=== PATIENT | male | born 1985 | race Caucasian/White ===

== ENCOUNTER 2019-04-30 19:11 | Emergency (ER) | payer BC, OTHER ==
[2019-04-30] MEDS ORDERED: Amoxicillin/Clavulanate K 875-125 MG Tab ONE (19:15)
--- NOTE | 2019-05-01 14:07 | EDM.PDOC ---
ED HPI GENERAL MEDICAL PROBLEM - General Chief Complaint: ENT Problem Stated Complaint: SORE THROAT Time Seen by Provider: 04/30/19 19:35 Source of Information: Reports: Patient History Limitations: Reports: No Limitations - History of Present Illness INITIAL COMMENTS - FREE TEXT/NARRATIVE: This is a 33yo M here for sore throat and malaise. He has been feeling worse the past week with no improvement of his sore throat. 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: Other Medication(s) - Related Data Allergies Allergy/AdvReac Type Severity Reaction Status Date / Time No Known Allergies Allergy Verified 04/30/19 19:19 Past Medical History Psychiatric History: Reports: Anxiety, PTSD Other Psychiatric History: mild PTSD - Infectious Disease History Infectious Disease History: Reports: Chicken Pox - Past Surgical History HEENT Surgical History: Reports: Other (See Below) Other HEENT Surgeries/Procedures: left abd surgery( unknown) tonsils, tubes Musculoskeletal Surgical History: Reports: Other (See Below) Other Musculoskeletal Surgeries/Procedures:: fx of right pointer finger, right thumb, collar bone right x 2, left arm, right sides ribs x 2 Social & Family History - Family History Family Medical History: Unobtainable - Tobacco Use Smoking Status *Q: Never Smoker Second Hand Smoke Exposure: No - Caffeine Use Caffeine Use: Reports: Coffee - Recreational Drug Use Recreational Drug Use: No ED ROS ENT - Review of Systems Review Of Systems: ROS reveals no pertinent complaints other than HPI. ED EXAM, ENT - Physical Exam Exam: See Below Exam Limited By: No Limitations General Appearance: Alert, WD/WN, No Apparent Distress Eye Exam: Bilateral Eye: EOMI Ears: Normal External Exam Nose: Normal Inspection Mouth/Throat: Pharyngeal Erythema, Uvular Edema, Other (pharyngeal exudates) Head: Atraumatic, Normocephalic Neck: Normal Inspection, Supple Respiratory/Chest: No Respiratory Distress Cardiovascular: Normal Peripheral Pulses Course - Vital Signs Last Recorded V/S: Last Vital Signs Temp 36.3 C 04/30/19 19:35 Pulse 68 04/30/19 19:35 Resp 18 04/30/19 19:35 BP 122/76 04/30/19 19:35 Pulse Ox 99 04/30/19 19:35 - Orders/Labs/Meds Meds: Medications Discontinued Medications Generic Name Dose Route Start Last Admin Trade Name Froy PRN Reason Stop Dose Admin Amoxicillin/Clavulanate Potassium 20 tab 04/30/19 19:15 Augmentin 875 Mg/125 Mg .ROUTE 04/30/19 19:16 .STK-MED ONE Departure - Departure Time of Disposition: 20:00 Disposition: Home, Self-Care 01 Condition: Good Clinical Impression: Pharyngitis Qualifiers: Pharyngitis/tonsillitis etiology: streptococcus Qualified Code(s): J02.0 - Streptococcal pharyngitis - Discharge Information Instructions: Strep Throat, [id number] Referrals: PCP,None [Primary Care Provider] - Forms: ED Department Discharge - Problem List & Annotations (1) Pharyngitis SNOMED Code(s): 911647718 Code(s): J02.9 - ACUTE PHARYNGITIS, UNSPECIFIED Status: Acute Priority: High Current Visit: Yes Qualifiers: Pharyngitis/tonsillitis etiology: streptococcus Qualified Code(s): J02.0 - Streptococcal pharyngitis - Problem List Review Problem List Initiated/Reviewed/Updated: Yes - Assessment/Plan Plan: Counseled on antibiotics use and close monitoring until resolution. F/u if symptoms persist or worsen. Discussed supportive care and f/u.
== END 2019-04-30 19:35 | disposition home or self-care (01) ==
LOC: LB.ED 19:11
DX: J02.0 Streptococcal pharyngitis (principal)
CPT/HCPCS: 99282; A9270-GY

== ENCOUNTER 2020-07-01 08:30 | Emergency (ER) | payer OTHER ==
--- NOTE | 2020-07-01 09:41 | EDM.PDOC ---
ED HPI GENERAL MEDICAL PROBLEM - General Chief Complaint: Back Pain or Injury Stated Complaint: FELL OFF LADDER INJURING HIP, BACK, ELBOW, HEAD Time Seen by Provider: 07/01/20 08:55 Source of Information: Reports: Patient History Limitations: Reports: No Limitations - History of Present Illness INITIAL COMMENTS - FREE TEXT/NARRATIVE: fell from a ladder - around 4-5 feet while working on his truck. landed on his lower back and left elbow. No LOC. was able to get up but was painful to him. occurred earlier this morning around 5 hrs ago. Onset: Today Duration: Hour(s): (4) Location: Reports: Back Quality: Reports: Ache Severity: Moderate Improves with: Reports: Medication Worsens with: Reports: Movement Treatments KIER HAND: Reports: NSAIDS - Related Data Allergies Allergy/AdvReac Type Severity Reaction Status Date / Time No Known Allergies Allergy Verified 04/30/19 19:19 Home Meds: Home Meds Cyclobenzaprine [Flexeril] 10 mg PO TID PRN #30 tab 07/01/20 [Rx] Gabapentin [Neurontin] 300 mg PO TID #30 cap 07/01/20 [Rx] traMADol HCl [Tramadol HCl] 50 mg PO Q6H PRN #20 tablet 07/01/20 [Rx] Past Medical History Musculoskeletal History: Reports: Back Pain, Chronic, Fracture Other Musculoskeletal History: tarsal tunnel both feet chronic knee pain Psychiatric History: Reports: Anxiety, PTSD Other Psychiatric History: mild PTSD - Infectious Disease History Infectious Disease History: Reports: Chicken Pox - Past Surgical History HEENT Surgical History: Reports: Other (See Below) Other HEENT Surgeries/Procedures: left abd surgery( unknown) tonsils, tubes Musculoskeletal Surgical History: Reports: Other (See Below) Other Musculoskeletal Surgeries/Procedures:: fx of right pointer finger, right thumb, collar bone right x 2, left arm, right sides ribs x 2 Social & Family History - Family History Family Medical History: Unobtainable - Caffeine Use Caffeine Use: Reports: Coffee ED ROS GENERAL - Review of Systems Review Of Systems: See Below Constitutional: Reports: No Symptoms HEENT: Reports: No Symptoms Respiratory: Reports: No Symptoms Cardiovascular: Reports: No Symptoms GI/Abdominal: Reports: No Symptoms Musculoskeletal: Reports: Back Pain Skin: Reports: No Symptoms Neurological: Reports: No Symptoms. Denies: Numbness, Tingling Psychiatric: Reports: No Symptoms ED EXAM,LOWER BACK PAIN/INJURY - Physical Exam Exam: See Below Exam Limited By: No Limitations General Appearance: Alert, WD/WN, No Apparent Distress Eye Exam: Bilateral Eye: PERRL Head: Atraumatic, Normocephalic Neck: Normal Inspection Respiratory/Chest: No Respiratory Distress, Lungs Clear, Normal Breath Sounds, Chest Non-Tender Cardiovascular: Normal Peripheral Pulses, Regular Rate, Rhythm, No Edema GI/Abdominal: Normal Bowel Sounds Back Exam: Normal Inspection, Muscle Spasm (b/l lower lumbar paraspinal muscle spasm, and mild TTP over L4-L5) Extremities: Normal Inspection, Normal Range of Motion Neurological: Alert, Normal Mood/Affect, Normal Dorsiflexion, Abnormal Gait (due to pain - limbing) Psychiatric: Normal Affect, Normal Mood Skin Exam: Warm Course - Vital Signs Last Recorded V/S: Last Vital Signs Temp 36.4 C 07/01/20 09:12 Pulse 66 07/01/20 09:12 Resp 14 07/01/20 09:12 BP 125/85 07/01/20 09:12 Pulse Ox 98 07/01/20 09:12 - Orders/Labs/Meds Orders: Active Orders 24 hr Category Date Time Status Elbow Min 3V Lt [CR] Stat Exams 07/01/20 08:53 Taken Lumbar Spine 2 or 3V [CR] Stat Exams 07/01/20 08:51 Taken - Re-Assessments/Exams Free Text/Narrative Re-Assessment/Exam: 07/01/20 09:49 xrays ordered for: elbow: no fracture or acute pathology Lumbar area: no e/o lumbar vertebral fracture , but possible L5 anterolisthesis. Departure - Departure Time of Disposition: 09:50 Disposition: Home, Self-Care 01 Condition: Good Clinical Impression: Lumbar strain Qualifiers: Encounter type: initial encounter Qualified Code(s): S39.012A - Strain of muscle, fascia and tendon of lower back, initial encounter Acute low back pain Qualifiers: Back pain laterality: midline Sciatica presence: without sciatica Qualified Code(s): M54.5 - Low back pain - Discharge Information *PRESCRIPTION DRUG MONITORING PROGRAM REVIEWED*: Yes *COPY OF PRESCRIPTION DRUG MONITORING REPORT IN PATIENT ABDELRAHMAN: Yes Prescriptions: Cyclobenzaprine [Flexeril] 10 mg PO TID PRN #30 tab PRN Reason: Pain (Moderate 4-6) Gabapentin [Neurontin] 300 mg PO TID #30 cap traMADol HCl [Tramadol HCl] 50 mg PO Q6H PRN #20 tablet PRN Reason: Pain (Moderate 4-6) Instructions: Back Injury Prevention, [id number], Muscle Strain, [id number], Pain Medicine Instructions, Kyva-[id number] Referrals: PCP,None [Primary Care Provider] - Forms: ED Department Discharge Additional Instructions: - take pain medications as prescribed - do not exceed 400mg ibuprofen every 6hrs for pain control - use muscle relaxant and other prescribed pain meds - alternate between heat/cold pads on the affected area - avoid lifting objects > 20 lbs for 1 week - follow up with PT for further treatment and evaluation - return to the ER if symptoms got worse or any concerns Sepsis Event Note (ED) - Evaluation Sepsis Screening Result: No Definite Risk - Focused Exam Vital Signs: Vital Signs Temp Pulse Resp BP Pulse Ox 07/01/20 09:12 36.4 C 66 14 125/85 98 - Problem List & Annotations (1) Acute low back pain SNOMED Code(s): 136779776 Code(s): M54.5 - LOW BACK PAIN Status: Acute Priority: Medium Current Visit: Yes Qualifiers: Back pain laterality: midline Sciatica presence: without sciatica Qualified Code(s): M54.5 - Low back pain (2) Lumbar strain SNOMED Code(s): 370232653 Code(s): S39.012A - STRAIN OF MUSCLE, FASCIA AND TENDON OF LOWER BACK, INIT Status: Acute Priority: Medium Current Visit: Yes Qualifiers: Encounter type: initial encounter Qualified Code(s): S39.012A - Strain of muscle, fascia and tendon of lower back, initial encounter - Problem List Review Problem List Initiated/Reviewed/Updated: Yes - My Orders Last 24 Hours: My Active Orders 07/01/20 08:51 Lumbar Spine 2 or 3V [CR] Stat 07/01/20 08:53 Elbow Min 3V Lt [CR] Stat - Assessment/Plan Last 24 Hours: My Active Orders 07/01/20 08:51 Lumbar Spine 2 or 3V [CR] Stat 07/01/20 08:53 Elbow Min 3V Lt [CR] Stat Plan: - take pain medications as prescribed - do not exceed 400mg ibuprofen every 6hrs for pain control - use muscle relaxant and other prescribed pain meds - alternate between heat/cold pads on the affected area - avoid lifting objects > 20 lbs for 1 week - follow up with PT for further treatment and evaluation - return to the ER if symptoms got worse or any concerns
--- NOTE | 2020-07-01 11:33 | CR ---
DATE OF SERVICE: 07/01/20 CLINICAL DATA: fall LUMBAR SPINE: No priors. There is mild left convexity scoliosis mid lumbar spine. There is a transitional vertebral body at the L5 level with a pseudoarthrosis between L5 and S1 on the left. The vertebral bodies are of average height and in good alignment. No acute fracture or dislocation. The disc spaces appear relatively intact. There is facet joint hypertrophy in the lower lumbar spine. No other significant findings. [id number] [facility]
--- NOTE | 2020-07-01 11:36 | CR ---
DATE OF SERVICE: 07/01/20 CLINICAL DATA: fall LEFT ELBOW: There is a small olecranon spur. No acute fracture or dislocation. No lytic or blastic bone lesions. No joint effusion. [id number] [facility]
== END 2020-07-01 10:10 | disposition home or self-care (01) ==
LOC: LB.ED 08:30
DX: S39.012A Strain of muscle, fascia and tendon of lower back, initial encounter (principal); W11.XXXA Fall on and from ladder, initial encounter
CPT/HCPCS: 72100; 73080-LT; 99283

== ENCOUNTER 2025-01-29 09:29 | Emergency (ER) | payer OTHER | END 2025-01-29 10:35 | disposition home or self-care (01) | LOC: LB.ED 09:29 | DX: M72.2 Plantar fascial fibromatosis (principal); M77.8 Other enthesopathies, not elsewhere classified | CPT/HCPCS: 73620-RT; 99283 ==